=== PATIENT | female | born 1995 | race African-American/Black ===

== ENCOUNTER 2017-02-10 19:08 | Day surgery (SDC) | payer OTHER ==
[2017-02-10 19:43] VITALS: BP 118/63; TEMP 98.5; BMI 28.3
--- NOTE | 2017-02-10 20:13 | PRG ---
DATE OF SERVICE: 02/10/2017 TIME OF EVALUATION: 1940 hours. LOCATION: Labor and Delivery REASON FOR EVALUATION: The patient at 31 weeks, patient of an outside provider, with vaginal pink d ischarge HISTORY OF PRESENT ILLNESS: In brief, this is a 21-year-old G1, P0 with a due date of 04/13/2016, m aking her 31 weeks and 1 day. She sees her [employer] in [place] where she is from and she is here v [facility]. She arrives here for pink vaginal discharge upon wiping. She denies vaginal bleeding, rup tured membranes, or abdominal trauma. She has not had recent intercourse. She denies any other com plications. She has good movement. She does not have headaches, visual changes or right uppe r quadrant pain. REVIEW OF SYSTEMS: Complete review of systems was done and is otherwise negative unless specified i n the HPI. ALLERGIES: None. OB HISTORY: She is a primigravida. SURGICAL HISTORY: Noncontributory. PHYSICAL EXAMINATION: VITAL SIGNS: Show a blood pressure of 118/63, pulse of 70 and she is afebrile. GENERAL: Clinically, she is in no acute distress. ABDOMEN: Size is equal to dates on abdominal exam. Cervical exam was currently deferred. Perineal inspection did not show evidence of active bleeding or of ruptured membranes. On nonstress test, heart tones are in the 130s to 140s with moderate variability and reactive based on the gestational age. There are no contractions on tocodynamometer, but maybe some small ir ritability. Interventions ordered. I have ordered a vaginitis panel 3 and a transvaginal ultrasoun d for cervical length. ASSESSMENT: This is a primigravida at 31 weeks with no strong evidence of labor. Evaluatio n to follow. PLAN: 1. FILTER CHANGER-3 and cervical length pending. 2. No evidence of active contractions or labor pattern. 3. No evidence of acute maternal or compromise. 4. Final disposition will be made after the interventions return.
--- NOTE | 2017-02-10 21:32 | PRG ---
DATE OF SERVICE: 02/10/2017 TIME OF EVALUATION: 21:22 LABORATORY AND ULTRASOUND FOLLOWUP In brief, the patient's VP3 returned with bacterial vaginosis. Cervical length revealed an average score of 2.55 with the longest value being 2.8, the shortest value 2.3. As there is no evidence of labor clinically, we will treat her for her bacterial vaginosis with Flagyl 500 mg 1 p.o. b. i.d. as an outpatient and a prescription has been given to her, information was also provided. We w ill follow up with her own provider in her home town.
--- NOTE | 2017-02-10 22:48 | ULT ---
PELVIC ULTRASOUND: 02/10/17 HISTORY: 31 week by dates. Evaluation of cervical canal length. Real time imaging of the pelvis shows a single viable intrauterine in a vertex presentati on. measurements are as follows: BPD 7.9 cm 31 weeks, 6 days Head circumference 28.0 cm 30 weeks, 5 days Abdominal circumference 27.7 cm 31 weeks, 5 days Femur length 6.3 cm 32 weeks, 3 days The placenta is more right sided in location without evidence of previa. The amniotic fluid is withi n normal limits. The amniotic fluid index is 14.5. heart rate is 144 beats per minute. The cervical canal length is 2.7 cm. Limited evaluation of anatomy was performed. No anomalies were detected. IMPRESSION: 1. Single viable intrauterine in a vertex presentation. Overall measurements correspo nding to a gestational age of 31 weeks, 5 days. Estimated date of delivery 04/09/17. 2. Estimated weight 1852 plus/minus 274 grams. 3. Cervical canal length of approximately 2.9 cm. POS: [facility]
== END 2017-02-10 21:35 | disposition home or self-care (01) ==
LOC: L&D/OP 19:08
PROVIDERS: ATTEND Obstetrics & Gynecology
DX: O23.593 Infection of other part of genital tract in pregnancy, third trimester (principal); N76.0 Acute vaginitis; B96.89 Other specified bacterial agents as the cause of diseases classified elsewhere; Z3A.31 31 weeks gestation of pregnancy; Z79.899 Other long term (current) drug therapy
CPT/HCPCS: 59025; 76815; 87480; 87510; 87660